=== PATIENT | female | born 1945 | race Hispanic/Latino ===

== ENCOUNTER 2018-05-19 10:07 | Inpatient (IN) | payer BC ==
[2018-05-19] MEDS ORDERED: Sodium Chloride 0.9% 1,000 ML IV SCH (10:30)
--- NOTE | 2018-05-19 10:36 | C.PDOC ---
History Of Present Illness 73 year old female, with PMHx of tremors, and psychosis, presents to ED for evaluation of tongue numbness since yesterday at 6:00 in the morning upon waking. Notes that she went to sleep at 7:00 the night before, 39 hours ago, which is the last time well. Denies vision change, motor weakness, hemiparesthesia, nausea, vomiting, or trauma. She notes that tongue feels heavy , which makes it difficult for her to speak normally. Notes her symptoms did not resolve which prompted her to visit PMD, Dr. Cuadra, today who sent her to ED for further evaluation. PMD: Dr. Yuli Cuadra Time Seen by Provider: 05/19/18 10:10 Chief Complaint (Nursing): Weakness/Neurological Deficit History Per: Patient History/Exam Limitations: no limitations Past Medical History Reviewed: Historical Data, Nursing Documentation, Vital Signs Vital Signs: Last Vital Signs Temp 98 F 05/19/18 10:12 Pulse 81 05/19/18 10:15 Resp 17 05/19/18 10:15 BP 152/59 H 05/19/18 10:15 Pulse Ox 96 05/19/18 10:57 - Medical History PMH: COPD, HTN - [facility] COLONOSCOPY (02/16/06) ESOPHAGOGASTRODUODENOSCOPY [EGD] W/CLOSED BIOPSY (02/16/06) Family History: States: Unknown Family Hx - Social History Hx Alcohol Use: No Hx Substance Use: No - Immunization History Hx Tetanus Toxoid Vaccination: No Hx Influenza Vaccination: No Hx Pneumococcal Vaccination: No Review Of Systems Except As Marked, All Systems Reviewed And Found Negative. Constitutional: Negative for: Fever, Chills ENT: Positive for: Other (tongue numbness) Cardiovascular: Negative for: Chest Pain Respiratory: Negative for: Shortness of Breath Physical Exam - Physical Exam Additional Physical Exam Comments: Constitutional: No acute distress. Head: Normocephalic. Atraumatic. Eyes: PERRL. ENT: Moist mucous membranes. Neck: Supple. Cardiovascular: Regular rate. Radial pulse 2+ bilaterally. Chest: No tenderness. Respiratory: Clear to auscultation bilaterally. GI: Soft. Nontender. Nondistended. Back: No CVA tenderness. Musculoskeletal: No tenderness or swelling of extremities. Skin: No rash. Neurologic: Alert. Left side facial droop sparing the forehead (pt and family didn't notice until time of evaluation). Sensation to light touch intact bilaterally. Motor 5/5 x 4. Finger to nose normal. ED Course And Treatment - Laboratory Results Result Diagrams: 05/19/18 10:27 05/19/18 10:27 O2 Sat by Pulse Oximetry: 96 rTPA Inclusion/Exclusion - Refusal of Treatment Patient Refused Treatment: No - Inclusion Criteria for Altepase Patient is 18 years or Older: Yes The Clinical Diagnosis of Ischemic Stroke That is Causing a Potentially Disabling Neurological Deficit: Yes Time of Onset is Well Established to be Less Than 270 Minute Before Treatment Would Begin: No Risk/Benefit Discussed With Patient/Family Member Present: Yes Medical Decision Making Medical Decision Making: EKG: Normal sinus rhythm at [address] elevation. Head CT IMPRESSION: No acute intracranial hemorrhage. Mild chronic periventricular white matter ischemic changes with more age-indeterminate infarct changes both basal ganglia with multiple tiny chronic appearing bilateral basal nuclei includes. Note that possibility of a small hyperacute infarct cannot be excluded on exam. Moderate central volume loss. Dr. Najera Neuro consulted, recommends MRI Brain which she will follow up on. Dr. Cheney accepts patient to hospitalist service. Aspirin administered. Disposition Discussed With : Mg Najera Doctor Will See Patient In The: Hospital - Disposition Disposition: HOSPITALIZED Disposition Time: 11:17 Condition: FAIR Forms: [facility] ([place]) - Clinical Impression Clinical Impression: Facial droop due to stroke - Scribe Statement The provider has reviewed the documentation as recorded by the Scribe KP All medical record entries made by the Scribe were at my direction and personally dictated by me. I have reviewed the chart and agree that the record accurately reflects my personal performance of the history, physical exam, medical decision making, and the department course for this patient. I have also personally directed, reviewed, and agree with the discharge instructions and disposition. NIHSS Stroke Scale - Date/Time Evaluation Performed Date Performed: 05/19/18 Time Performed: 10:42 - How Severe is the Stoke Level of Consciousness: 0=Alert LOC to Questions: 0=Both comments correct LOC to commands: 0=Obeys both correctly Best Gaze: 0=Normal Visual: 0=No visual loss Facial: 2=Partial (lower face paralysis) Motor Arm - Left: 0=No drift Motor Arm - Right: 0=No drift Motor Leg - Left: 0=No drift Motor Leg - Right: 0=No drift Limb Ataxia: 0=Absent Sensory: 0=Normal Best Language: 0=No aphasia Dysarthia: 1=Mild to moderate slurring Extinction & Inattention (Neglect): 0=Normal, no object Score: 3 Severity Of Stroke: 1-4= Minor Stroke
[2018-05-19 10:41] LABS: BASO # 0.1 K/uL (0.0-0.2); EOS # 0.1 K/uL (0.0-0.7); EOS % 1.7 % (0.0-4.0); HEMOGLOBIN 12.5 g/dL (11.0-16.0); LYMPH # 2.3 K/uL (1.0-4.3); MEAN CELL VOLUME 95.5 fL (81.0-99.0); MEAN CORPUSCULAR HEMOGLOBIN 31.8 pg (27.0-31.0); MEAN CORPUSCULAR HGB CONC 33.4 g/dL (33.0-37.0); MONO # 0.7 K/uL (0.0-0.8); MONO % 9.4 % (0.0-10.0); NEUT # 4.4 K/uL (1.8-7.0); NEUT % 57.9 % (50.0-75.0); RBC 3.92 Mil/uL (3.80-5.20); RED CELL DISTRIBUTION WIDTH 14.6 % (11.5-14.5); WHITE BLOOD COUNT 7.6 K/uL (4.8-10.8)
--- NOTE | 2018-05-19 10:43 | CT ---
Date of service: 05/19/2018 PROCEDURE: CT HEAD WITHOUT CONTRAST. HISTORY: Facial droop, tongue heaviness COMPARISON: None available. TECHNIQUE: Axial computed tomography images were obtained through the head/brain without intravenous contrast. Radiation dose: Total exam DLP = 862.22 mGy-cm. This CT exam was performed using one or more of the following dose reduction techniques: Automated exposure control, adjustment of the mA and/or kV according to patient size, and/or use of iterative reconstruction technique. . FINDINGS: HEMORRHAGE: No acute parenchymal, subarachnoid or extra-axial hemorrhage. BRAIN: Mild chronic periventricular white matter ischemic changes with ischemic changes seen extending into the left anterolateral basal ganglia. . There is an age indeterminate infarcts seen in the right posterior inferior basal ganglia likely chronic given its appearance however clinical correlation recommended. Additional multiple small chronic appearing bilateral basal nuclei lacunar type infarcts also seen. . . Note that the possibility of a small hyperacute infarct cannot be excluded. . Moderate central volume loss evidenced by mild disproportion enlargement of the ventricles compared sulci. Minor vascular calcifications both carotid siphons. VENTRICLES: No obstructive hydrocephalus. CALVARIUM: There are no acute calvarial fractures. PARANASAL SINUSES: Unremarkable as visualized. No significant inflammatory changes. MASTOID AIR CELLS: Unremarkable as visualized. No inflammatory changes. OTHER FINDINGS: None. IMPRESSION: No acute intracranial hemorrhage. Mild chronic periventricular white matter ischemic changes with more age-indeterminate infarct changes both basal ganglia with multiple tiny chronic appearing bilateral basal nuclei includes. Note that possibility of a small hyperacute infarct cannot be excluded on exam. Moderate central volume loss.
[2018-05-19 10:49] LABS: ALB/GLOB RATIO 1.5 (1.0-2.1); ALBUMIN 4.5 g/dL (3.5-5.0); CALCIUM 9.5 mg/dl (8.6-10.4); GFR AFRICAN-AMERICAN > 60; GFR NON-AFRICAN AMERICAN > 60; HDL CHOLESTEROL 47 mg/dL (30-70); INR 1.1
[2018-05-19 10:53] LABS: ALT/SGPT 16 U/L (9-52); AST/SGOT 25 U/L (14-36); BLOOD UREA NITROGEN 17 mg/dL (7-17)
[2018-05-19 11:01] LABS: LDL CHOLESTEROL 149 mg/dL (0-129)
--- NOTE | 2018-05-19 11:24 | RAD ---
Date of service: 05/19/2018 HISTORY: Code Stroke COMPARISON: No prior. FINDINGS: LUNGS: Minor linear atelectasis and scarring of both lung bases. PLEURA: No significant pleural effusion identified, no pneumothorax apparent. CARDIOVASCULAR: Normal. OSSEOUS STRUCTURES: No significant abnormalities. VISUALIZED UPPER ABDOMEN: Normal. OTHER FINDINGS: None. IMPRESSION: Minor linear atelectasis and or scarring both lung
--- NOTE | 2018-05-19 12:08 | CP.PCM.HP ---
<Salo Ball - Last Filed: 05/19/18 14:06> History of Present Illness - History of Present Illness History of Present Illness: cc: facial droop and tongue heaviness HPI: 73yo F with a PMH of COPD, HTN, Psychosis, tremors and a CVA (2008) presents to the ED with a one day history of facial droop and onset on tongue heaviness felt this morning. Pt also was acting a little strange and sounded "drunk" last night according to her son and grand son with whom she lives with. Pt was feeling dizzy and this morning son who noticed her facial droop and recommended she go see her PMD Dr Cuadra immediately. Dr cuadra sent the pt here to the ED with suspicion of stroke. Pt started on IVF upon arrival and given 325mg ASA PO when initial CT was read neg for bleed. Of note Pt has been off her anticonvulsant medication ROS:pos+ dizziness, Headache, tongue heaviness, couch, abd pain, worsening tremors, sick contact: grandson bronchitis neg - f/c vomiting, SOB, change in vision, change in speech PMD: Dr Cuadra Psych: Dr Hansen PSx hysterectomy, bladder sx fm hx: mom cataracts, dad young? SocHx: denies any drug tobacco or etoh use. Lives with son's family Present on Admission - Present on Admission Any Indicators Present on Admission: No Review of Systems - Constitutional Constitutional: As Per HPI - EENT Eyes: As Per HPI Ears: As Per HPI Nose/Mouth/Throat: As Per HPI - Breasts Breasts: As Per HPI - Cardiovascular Cardiovascular: As Per HPI. absent: Chest Pain, Chest Pain at Rest, Diaphoresis , Dyspnea, Dyspnea on Exertion, Pain Radiating to Arm/Neck/Jaw, Leg Edema, Palpitations - Respiratory Respiratory: As Per HPI, Cough - Gastrointestinal Gastrointestinal: Abdominal Pain, Nausea. absent: Loose Stools - Genitourinary Genitourinary: absent: Dysuria, Urinary Frequency - Musculoskeletal Musculoskeletal: Numbness (L face) - Neurological Neurological: Dizziness, Numbness (L face), Focal Weakness (R arm), Headaches, Lack of Coordination. absent: Loss of Vision, Memory Loss Additional comments: tongue heaviness - Hematologic/Lymphatic Additional comments: sick contact at home, grandson bronchitis Past Patient History - Past Medical History & Family History Past Medical History?: Yes - Past Social History Smoking Status: Never Smoked - CARDIAC Hx Hypertension: Yes - PULMONARY Hx Chronic Obstructive Pulmonary Disease (COPD): Yes - NEUROLOGICAL Hx Neurological Disorder: Yes HX Cerebrovascular Accident: Yes (9 years ago) - PSYCHIATRIC Hx Substance Use: No - SURGICAL HISTORY Hx Surgeries: Yes Hx Hysterectomy: Yes Meds Allergies/Adverse Reactions: Allergies Allergy/AdvReac Type Severity Reaction Status Date / Time lactose Allergy Verified 05/19/18 10:20 Penicillins Allergy Verified 05/19/18 10:20 Physical Exam - Constitutional Appears: Well, Non-toxic, No Acute Distress - Head Exam Head Exam: ATRAUMATIC, NORMOCEPHALIC - Eye Exam Eye Exam: EOMI, Normal appearance, PERRL Pupil Exam: NORMAL ACCOMODATION - ENT Exam ENT Exam: Mucous Membranes Moist Additional comments: tongue deviation to the left - Neck Exam Neck exam: Positive for: Normal Inspection - Respiratory Exam Respiratory Exam: Clear to Auscultation Bilateral, NORMAL BREATHING PATTERN - Cardiovascular Exam Cardiovascular Exam: RRR, +S1, +S2 - GI/Abdominal Exam GI & Abdominal Exam: Normal Bowel Sounds, Soft. absent: Tenderness - Back Exam Back exam: NORMAL INSPECTION - Neurological Exam Neurological exam: Alert, Oriented x3 Additional comments: POS: L facial numbness R arm weakness L sided tongue deviation Pos tap blink relfex Rhomberg's- unstable NEG: heel diaz slurred speech shor term memory deficits Resting tremors noted in all four extremities - Psychiatric Exam Psychiatric exam: Normal Affect, Normal Mood - Skin Skin Exam: Normal Color, Warm Results - Vital Signs Recent Vital Signs: Last Vital Signs Temp 98 F 05/19/18 10:12 Pulse 81 05/19/18 10:15 Resp 17 05/19/18 10:15 BP 152/59 H 05/19/18 10:15 Pulse Ox 96 05/19/18 11:18 - Labs Result Diagrams: 05/19/18 10:27 05/19/18 10:27 Labs: Laboratory Results - last 24 hr 05/19/18 05/19/18 05/19/18 10:12 10:27 10:27 WBC 7.6 RBC 3.92 Hgb 12.5 Hct 37.5 MCV 95.5 MCH 31.8 H MCHC 33.4 RDW 14.6 H Plt Count 274 MPV 9.0 Neut % (Auto) 57.9 Lymph % (Auto) 30.0 [place] % (Auto) 9.4 Eos % (Auto) 1.7 Baso % (Auto) 1.0 Neut # (Auto) 4.4 Lymph # (Auto) 2.3 [place] # (Auto) 0.7 Eos # (Auto) 0.1 Baso # (Auto) 0.1 PT 12.0 INR 1.1 APTT 36 H Sodium Potassium Chloride Carbon Dioxide Anion Gap BUN Creatinine Est GFR ( Amer) Est GFR (Non-Af Amer) POC Glucose (mg/dL) 115 H Random Glucose Hemoglobin A1c Calcium Total Bilirubin AST ALT Alkaline Phosphatase Troponin I Total Protein Albumin Globulin Albumin/Globulin Ratio Triglycerides Cholesterol LDL Cholesterol Direct HDL Cholesterol Blood Type Antibody Screen 05/19/18 05/19/18 05/19/18 10:27 10:27 10:27 WBC RBC Hgb Hct MCV MCH MCHC RDW Plt Count MPV Neut % (Auto) Lymph % (Auto) [place] % (Auto) Eos % (Auto) Baso % (Auto) Neut # (Auto) Lymph # (Auto) [place] # (Auto) Eos # (Auto) Baso # (Auto) PT INR APTT Sodium 142 Potassium 4.5 Chloride 106 Carbon Dioxide 25 Anion Gap 15 BUN 17 Creatinine 0.6 L Est GFR ( Amer) > 60 Est GFR (Non-Af Amer) > 60 POC Glucose (mg/dL) Random Glucose 99 Hemoglobin A1c 5.7 Calcium 9.5 Total Bilirubin 0.6 AST 25 ALT 16 Alkaline Phosphatase 100 Troponin I < 0.0120 Total Protein 7.4 Albumin 4.5 Globulin 2.9 Albumin/Globulin Ratio 1.5 Triglycerides 199 H Cholesterol 256 H LDL Cholesterol Direct 149 H HDL Cholesterol 47 Blood Type O POSITIVE Antibody Screen Negative Assessment & Plan - Assessment and Plan (Free Text) Assessment: 73yo F with a PMH of HTN, COPD and a CVA Plan: R Basal ganglia acute infarction: -MRI: R small postero lateral basialr infarct with findings of chronic white matter ischemic changes -CT: Chronic white matter changes in R basal ganglia -Dr Najera Neurology consulted: recs appreciated -Plavix 300mg given today, 75mg tmrw daily -ASA 81mg daily -Crestor 20mg -PT/OT -Lipid Panel Abd Pain -EKG f/u results -Trops f/u Hyperglycemia -ISS PPX: -ASA 81mg PO -Plavix 75mg PO daily <Joseph Cheney H - Last Filed: 05/21/18 11:14> Results - Vital Signs Recent Vital Signs: Last Vital Signs Temp 97.6 F 05/21/18 07:00 Pulse 105 H 05/21/18 08:57 Resp 18 05/21/18 07:00 BP 125/78 05/21/18 07:00 Pulse Ox 99 05/21/18 07:00 - Labs Result Diagrams: 05/21/18 08:21 05/21/18 09:05 Labs: Laboratory Results - last 24 hr 05/20/18 05/20/18 05/20/18 11:37 11:37 11:37 WBC 6.1 RBC 3.67 L Hgb 11.7 Hct 34.9 MCV 95.2 MCH 31.9 H MCHC 33.5 RDW 14.3 Plt Count 253 MPV 9.1 Neut % (Auto) 56.0 Lymph % (Auto) 32.4 [place] % (Auto) 8.2 Eos % (Auto) 2.4 Baso % (Auto) 1.0 Neut # (Auto) 3.4 Lymph # (Auto) 2.0 [place] # (Auto) 0.5 Eos # (Auto) 0.1 Baso # (Auto) 0.1 Sodium 144 Potassium 3.9 Chloride 108 H Carbon Dioxide 23 Anion Gap 17 BUN 11 Creatinine 0.6 L Est GFR ( Amer) > 60 Est GFR (Non-Af Amer) > 60 Random Glucose 92 Calcium 9.3 Phosphorus 2.3 L Magnesium 2.4 H Total Bilirubin 0.5 AST 17 ALT 21 Alkaline Phosphatase 97 Total Protein 7.0 Albumin 4.3 Globulin 2.8 Albumin/Globulin Ratio 1.5 25-OH Vitamin D Total < 12.8 L Free T4 TSH 3rd Generation RPR 05/20/18 05/20/18 05/20/18 11:37 11:37 11:37 WBC RBC Hgb Hct MCV MCH MCHC RDW Plt Count MPV Neut % (Auto) Lymph % (Auto) [place] % (Auto) Eos % (Auto) Baso % (Auto) Neut # (Auto) Lymph # (Auto) [place] # (Auto) Eos # (Auto) Baso # (Auto) Sodium Potassium Chloride Carbon Dioxide Anion Gap BUN Creatinine Est GFR ( Amer) Est GFR (Non-Af Amer) Random Glucose Calcium Phosphorus Magnesium Total Bilirubin AST ALT Alkaline Phosphatase Total Protein Albumin Globulin Albumin/Globulin Ratio 25-OH Vitamin D Total Free T4 0.88 TSH 3rd Generation 0.94 RPR Nonreactive 05/21/18 05/21/18 08:21 09:05 WBC 5.8 RBC 3.63 L Hgb 11.6 Hct 34.2 MCV 94.1 MCH 32.0 H MCHC 34.0 RDW 14.2 Plt Count 241 MPV 8.8 Neut % (Auto) 52.6 Lymph % (Auto) 35.3 [place] % (Auto) 8.3 Eos % (Auto) 2.7 Baso % (Auto) 1.1 Neut # (Auto) 3.0 Lymph # (Auto) 2.0 [place] # (Auto) 0.5 Eos # (Auto) 0.2 Baso # (Auto) 0.1 Sodium 142 Potassium 4.2 Chloride 108 H Carbon Dioxide 25 Anion Gap 13 BUN 7 Creatinine 0.6 L Est GFR ( Amer) > 60 Est GFR (Non-Af Amer) > 60 Random Glucose 99 Calcium 8.9 Phosphorus 3.1 Magnesium 2.3 Total Bilirubin 0.4 AST 19 ALT 23 Alkaline Phosphatase 95 Total Protein 6.4 Albumin 3.7 Globulin 2.7 Albumin/Globulin Ratio 1.4 25-OH Vitamin D Total Free T4 TSH 3rd Generation RPR Attending/Attestation - Attestation I have personally seen and examined this patient.: Yes I have fully participated in the care of the patient.: Yes I have reviewed all pertinent clinical information: Yes Notes (Text): 05/21/18 11:10 Medical attending: Patient was seen and examined by me on the day of admission with the ophthalmic medical technician. This is a later signing but we did see and evaluate the patient on admission. The patient was not in any acute distress however it was noted the facial drooping, the decrease sensation as well as slurred speech. The patient had a head CT which was negative, the MRI was done and the MRI was able to show that she did in fact have a small infacrtion. She will need to have an echo done as well as evaluation of the carotids, blood work. She will be started on Plavix 300 and then 75 afterwards, ASA, and also PT /OT. Because of the duration of when she was last seen normal as well as when she came in she was already approaching 40 hrs so is not a TPA candidate. Joseph Cheney
--- NOTE | 2018-05-19 12:51 | MRI ---
Date of service: 05/19/2018 PROCEDURE: MRI BRAIN WITHOUT CONTRAST HISTORY: Facial droop COMPARISON: None available. TECHNIQUE: Multiplanar, multisequence MR images of the brain were obtained without intravenous contrast enhancement. FINDINGS: HEMORRHAGE: No acute parenchymal, subarachnoid nor extra-axial hemorrhage. No evidence of hemosiderin deposition is identified on gradient echo weighted sequence. DWI: There is a tiny acute infarct seen in the right posterolateral basal ganglia. No other acute infarcts are identified. BRAIN PARENCHYMA: Mild diffuse/confluent chronic periventricular and white matter ischemic changes with scattered more discrete deep and subcortical white matter as well as bilateral basal nuclei lacunar type infarcts. . Moderate central volume loss. VENTRICLES: No obstructive hydrocephalus. CRANIUM: Unremarkable. ORBITS: Orbits and contents unremarkable. PARANASAL SINUSES/MASTOIDS: Clear VASCULAR SYSTEM: The visualized major vascular flow voids at skull base patent. OTHER FINDINGS: None. There is a small acute right posterolateral basal ganglia infarct. Chronic white matter ischemic change IMPRESSION: There is a small acute right posterolateral basal ganglia infarct. There are also of chronic appearing bilateral basal nuclei and chronic white matter ischemic changes as well. Findings discussed with Dr. Gonzales at approximately 12:49 p.m. with written down and read back verification. No acute intracranial hemorrhage. Moderate central volume loss.
[2018-05-19] MEDS: Sodium Chloride 0.9% 1,000 ML IV SCH (14:55)
--- NOTE | 2018-05-19 15:26 | CP.PCM.CON ---
History of Present Illness - History of Present Illness History of Present Illness: 73yo F with a PMH of COPD, HTN, Psychosis, tremors and a CVA (2008) presents to the ED with a one day history of facial droop and onset on tongue heaviness felt this morning. Pt also was acting a little strange and sounded "drunk" last night according to her son and grand son with whom she lives with. Pt was feeling dizzy and this morning son who noticed her facial droop and recommended she go see her PMD Dr Cuadra immediately. Dr cuadra sent the pt here to the ED with suspicion of stroke. Pt started on IVF upon arrival and given 325mg ASA PO when initial CT was read neg for bleed. Of note Pt has been off her anticonvulsant medication ROS:pos+ dizziness, Headache, tongue heaviness, couch, abd pain, worsening tremors, sick contact: grandson bronchitis neg - f/c vomiting, SOB, change in vision, change in speech PMD: Dr Cuadra Psych: Dr Hansen PSx hysterectomy, bladder sx fm hx: mom cataracts, dad young? SocHx: denies any drug tobacco or etoh use. Lives with son's family Past Patient History - Past Medical History & Family History Past Medical History?: Yes - Past Social History Smoking Status: Never Smoked - CARDIAC Hx Hypertension: Yes - PULMONARY Hx Chronic Obstructive Pulmonary Disease (COPD): Yes - NEUROLOGICAL Hx Neurological Disorder: Yes HX Cerebrovascular Accident: Yes (9 years ago) - MUSCULOSKELETAL/RHEUMATOLOGICAL Hx Falls: No - PSYCHIATRIC Hx Substance Use: No - SURGICAL HISTORY Hx Surgeries: Yes Hx Hysterectomy: Yes Meds Allergies/Adverse Reactions: Allergies Allergy/AdvReac Type Severity Reaction Status Date / Time lactose Allergy Verified 05/19/18 10:20 Penicillins Allergy Verified 05/19/18 10:20 - Medications Medications: Current Medications Clopidogrel Bisulfate (Plavix) 75 mg PO DAILY ALF Sodium Chloride (Sodium Chloride 0.9%) 1,000 mls @ 100 mls/hr IV .Q10H ALF Last Admin: 05/19/18 10:45 Dose: 100 mls/hr Sodium Chloride (Sodium Chloride 0.9%) 1,000 mls @ 100 mls/hr IV .Q10H ALF Last Admin: 05/19/18 14:55 Dose: Not Given Insulin Aspart (Novolog Mix 70/30 (70/30 Units/Ml)) 0 units SC ACHS ALF PRN Reason: Protocol Rosuvastatin Calcium (Crestor) 20 mg PO HS ALF Results - Vital Signs Recent Vital Signs: Last Vital Signs Temp 97.7 F 05/19/18 13:47 Pulse 78 05/19/18 13:47 Resp 18 05/19/18 13:47 BP 138/83 05/19/18 13:47 Pulse Ox 97 05/19/18 13:47 - Labs Result Diagrams: 05/22/18 07:15 05/22/18 07:15 Labs: Laboratory Results - last 24 hr 05/19/18 05/19/18 05/19/18 10:12 10:27 10:27 WBC 7.6 RBC 3.92 Hgb 12.5 Hct 37.5 MCV 95.5 MCH 31.8 H MCHC 33.4 RDW 14.6 H Plt Count 274 MPV 9.0 Neut % (Auto) 57.9 Lymph % (Auto) 30.0 [place] % (Auto) 9.4 Eos % (Auto) 1.7 Baso % (Auto) 1.0 Neut # (Auto) 4.4 Lymph # (Auto) 2.3 [place] # (Auto) 0.7 Eos # (Auto) 0.1 Baso # (Auto) 0.1 PT 12.0 INR 1.1 APTT 36 H Sodium Potassium Chloride Carbon Dioxide Anion Gap BUN Creatinine Est GFR ( Amer) Est GFR (Non-Af Amer) POC Glucose (mg/dL) 115 H Random Glucose Hemoglobin A1c Calcium Total Bilirubin AST ALT Alkaline Phosphatase Troponin I Total Protein Albumin Globulin Albumin/Globulin Ratio Triglycerides Cholesterol LDL Cholesterol Direct HDL Cholesterol Blood Type Antibody Screen 05/19/18 05/19/18 05/19/18 10:27 10:27 10:27 WBC RBC Hgb Hct MCV MCH MCHC RDW Plt Count MPV Neut % (Auto) Lymph % (Auto) [place] % (Auto) Eos % (Auto) Baso % (Auto) Neut # (Auto) Lymph # (Auto) [place] # (Auto) Eos # (Auto) Baso # (Auto) PT INR APTT Sodium 142 Potassium 4.5 Chloride 106 Carbon Dioxide 25 Anion Gap 15 BUN 17 Creatinine 0.6 L Est GFR ( Amer) > 60 Est GFR (Non-Af Amer) > 60 POC Glucose (mg/dL) Random Glucose 99 Hemoglobin A1c 5.7 Calcium 9.5 Total Bilirubin 0.6 AST 25 ALT 16 Alkaline Phosphatase 100 Troponin I < 0.0120 Total Protein 7.4 Albumin 4.5 Globulin 2.9 Albumin/Globulin Ratio 1.5 Triglycerides 199 H Cholesterol 256 H LDL Cholesterol Direct 149 H HDL Cholesterol 47 Blood Type O POSITIVE Antibody Screen Negative Assessment & Plan - Assessment and Plan (Free Text) Assessment: MRI Brain: Plan: MRI/Brain: shows right posterolateral basal ganglia acute stroke, with no hemorrhage. A/Plan: 73 yr old woman with new onset small rt. mca division 1 most likely embolic stroke, who is now stable. plan: 1. ECho 2. CTA head and neck. 3. Keep BP elevated at 180-190/90 with normal saline 100 ccs/hr 4. aspirin and plavix. 5. statin started. 6. PT/ST/OT 7. Neurochecks Thank you Dr. posadas
[2018-05-19] MEDS: (Novolog Mix 70/30) Insulin Aspart/Insulin Aspar 100 units/ml SC SCH ×2 (17:05→22:03)
[2018-05-19] MEDS ORDERED: Iodixanol 320 MG/ML 100 ML BOTTLE IV ONE (17:45)
[2018-05-20] MEDS: Sodium Chloride 0.9% 1,000 ML IV SCH ×2 (03:07→20:00)
[2018-05-20] MEDS: (Novolog Mix 70/30) Insulin Aspart/Insulin Aspar 100 units/ml SC SCH ×4 (08:14→22:38)
--- NOTE | 2018-05-20 08:20 | CP.PCM.PN ---
<Destini Davila DO - Last Filed: 05/20/18 15:37> Subjective - Date & Time of Evaluation Date of Evaluation: 05/20/18 Time of Evaluation: 08:20 - Subjective Subjective: Medicine progress note for Dr. Friedman's service Patient seen and examined. Patient reports persistent tongue "heaviness" that she states interferes with her ability to articulate her speech. She states her facial droop has improved. She reports inability to have IV contrast due to dizziness and tremors that resulted from last attempt at IV contrast administration. Objective - Vital Signs/Intake and Output Vital Signs (last 24 hours): Temp Pulse Resp BP Pulse Ox 98.1 F 77 20 131/80 99 05/20/18 07:10 05/20/18 07:10 05/20/18 07:10 05/20/18 07:10 05/20/18 07:10 Intake and Output: 05/20/18 05/20/18 06:59 18:59 Intake Total 800 900 Balance 800 900 - Medications Medications: Current Medications Clopidogrel Bisulfate (Plavix) 75 mg PO DAILY [facility]F Sodium Chloride (Sodium Chloride 0.9%) 1,000 mls @ 100 mls/hr IV .Q10H [facility] Last Admin: 05/20/18 03:07 Dose: 100 mls/hr Insulin Aspart (Novolog Mix 70/30 (70/30 Units/Ml)) 0 units SC ACHS [facility] PRN Reason: Protocol Last Admin: 05/20/18 08:14 Dose: Not Given Rosuvastatin Calcium (Crestor) 20 mg PO HS ALF Last Admin: 05/19/18 21:20 Dose: 20 mg - Labs Labs: 05/19/18 10:27 05/19/18 10:27 PT 12.0 SECONDS (9.7-12.2) 05/19/18 10:27 INR 1.1 05/19/18 10:27 APTT 36 SECONDS (21-34) H 05/19/18 10:27 Assessment and Plan - Assessment and Plan (Free Text) Assessment: R Basal ganglia acute infarction: -MRI: R small postero lateral basialr infarct with findings of chronic white matter ischemic changes -CT: Chronic white matter changes in R basal ganglia -Dr Najera Neurology consulted: recs appreciated -Plavix 300mg given today, 75mg daily after -ASA 81mg daily -Crestor 20mg -PT/OT/ ST -Lipid Panel: Triglycerides 199, cholesterol 256, LDL 149, HDL 47 -TSH 0.94, Free T4 0.88 - vit D <12.8 Impaired Glucose tolerance -Hemoglobin A1c 5.7 PPX: PT/ OT/ ST <Delfin Friedman - Last Filed: 05/20/18 16:27> Objective - Vital Signs/Intake and Output Vital Signs (last 24 hours): Temp Pulse Resp BP Pulse Ox 98.1 F 77 20 131/80 99 05/20/18 07:10 05/20/18 07:10 05/20/18 07:10 05/20/18 07:10 05/20/18 07:10 Intake and Output: 05/20/18 05/20/18 06:59 18:59 Intake Total 800 900 Balance 800 900 - Medications Medications: Current Medications Acetaminophen (Tylenol 325mg Tab) 650 mg PO Q6 PRN PRN Reason: Pain, Mild (1-3) Last Admin: 05/20/18 10:05 Dose: 650 mg Albuterol/Ipratropium (Duoneb 3 Mg/0.5 Mg (3 Ml) Ud) 3 ml INH RQ6 PRN PRN Reason: Shortness of Breath Aspirin (Aspirin Chewable) 81 mg PO DAILY [facility] Last Admin: 05/20/18 13:09 Dose: 81 mg Clopidogrel Bisulfate (Plavix) 75 mg PO DAILY [facility] Last Admin: 05/20/18 09:18 Dose: 75 mg Heparin Sodium (Porcine) (Heparin) 5,000 units SC Q12 [facility] Last Admin: 05/20/18 13:09 Dose: 5,000 units Sodium Chloride (Sodium Chloride 0.9%) 1,000 mls @ 100 mls/hr IV .Q10H [facility] Last Admin: 05/20/18 03:07 Dose: 100 mls/hr Insulin Aspart (Novolog Mix 70/30 (70/30 Units/Ml)) 0 units SC ACHS [facility] PRN Reason: Protocol Last Admin: 05/20/18 14:44 Dose: Not Given Rosuvastatin Calcium (Crestor) 20 mg PO HS [facility] Last Admin: 05/19/18 21:20 Dose: 20 mg - Labs Labs: 05/20/18 11:37 05/20/18 11:37 PT 12.0 SECONDS (9.7-12.2) 05/19/18 10:27 INR 1.1 05/19/18 10:27 APTT 36 SECONDS (21-34) H 05/19/18 10:27 Attending/Attestation - Attestation I have personally seen and examined this patient.: Yes I have fully participated in the care of the patient.: Yes I have reviewed all pertinent clinical information, including history, physical exam and plan: Yes Notes (Text): 05/20/18 16:17 Patient was seen and examined at 12:10 PM 05/20/18 Bed 659 A Also on ROS: Moved her bowels 2 days ago on and states that she has a history of Constipation Heaviness of tongue sensation has almost completely resolved now only involving the left lateral aspect of the tongue She has been eating solids (croissant) from [employer] without and issues and can't stand the puree diet Exam: General: AAOX3, NAD HEENT: NCA, EOMI, PERRLA, NO cervical/supraclavicular/submandibular lymphadenopathy, NO pharyngeal erythema/exudate, Nasal Turbinates are nonerythematous/nonedematous, Oral Mucosa is moist, She is unable to move the left side of her mouth when asked to smile Cardio: NS1 and NS2, NO M/R/G Resp: CTA B/L, NO R/R/W GI: BSx4, Soft, NT, NO HSM, NO guarding/rebound tenderness Ext: Pulses are strong and equal, Capillary Refill is 2 seconds, NO edema Neuro: CN II through XII are grossly intact, 5/5 strength with flexion and extension against resistance and 2/4 DTR in bilateral upper and lower extremities Assessments: 1). 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 Rhianna Fernandez F/U PT F/U Speech Swallow Evaluation before advancing diet 2). HTN HOLD any antihypertensives for now so as to keep the SBP in the 180-190s as per Neurology NS at 100 ml/hr 3). Prophylaxis Heparin 5,000 Units SC Q8H Duoneb Q6H PRN SOB Tylenol 650 mg PO Q6H PRN Mild Pain Disposition: will need Swallow Evaluation, PT and Neurology clearance Delfin Friedman D.O.
[2018-05-20] MEDS ORDERED: Albuterol-Ipratrop 3 mg / 0.5 (3 ml) UD INH PRN (09:52)
[2018-05-20 12:04] LABS: BASO # 0.1 K/uL (0.0-0.2); EOS # 0.1 K/uL (0.0-0.7); EOS % 2.4 % (0.0-4.0); HEMOGLOBIN 11.7 g/dL (11.0-16.0); LYMPH % 32.4 % (20.0-40.0); MEAN CELL VOLUME 95.2 fL (81.0-99.0); MEAN CORPUSCULAR HEMOGLOBIN 31.9 pg (27.0-31.0); MEAN CORPUSCULAR HGB CONC 33.5 g/dL (33.0-37.0); MEAN PLATELET VOLUME 9.1 fL (7.2-11.7); MONO # 0.5 K/uL (0.0-0.8); MONO % 8.2 % (0.0-10.0); NEUT # 3.4 K/uL (1.8-7.0); NRBC % 0.1 % (0.0-2.0); RBC 3.67 Mil/uL (3.80-5.20); RED CELL DISTRIBUTION WIDTH 14.3 % (11.5-14.5); WHITE BLOOD COUNT 6.1 K/uL (4.8-10.8)
[2018-05-20 12:26] LABS: ALB/GLOB RATIO 1.5 (1.0-2.1); ALBUMIN 4.3 g/dL (3.5-5.0); ALT/SGPT 21 U/L (9-52); AST/SGOT 17 U/L (14-36); BLOOD UREA NITROGEN 11 mg/dL (7-17); CALCIUM 9.3 mg/dl (8.6-10.4); GFR AFRICAN-AMERICAN > 60; GFR NON-AFRICAN AMERICAN > 60
[2018-05-21] MEDS: (Novolog Mix 70/30) Insulin Aspart/Insulin Aspar 100 units/ml SC SCH ×3 (07:05→22:43)
[2018-05-21] MEDS ORDERED: Ergocalciferol 50,000 Intl Units Cap PO SCH (08:15)
[2018-05-21 08:48] LABS: BASO # 0.1 K/uL (0.0-0.2); BASO % 1.1 % (0.0-2.0); EOS # 0.2 K/uL (0.0-0.7); EOS % 2.7 % (0.0-4.0); HEMOGLOBIN 11.6 g/dL (11.0-16.0); LYMPH % 35.3 % (20.0-40.0); MEAN CELL VOLUME 94.1 fL (81.0-99.0); MEAN PLATELET VOLUME 8.8 fL (7.2-11.7); MONO # 0.5 K/uL (0.0-0.8); MONO % 8.3 % (0.0-10.0); NEUT % 52.6 % (50.0-75.0); NRBC % 0.2 % (0.0-2.0); RBC 3.63 Mil/uL (3.80-5.20); RED CELL DISTRIBUTION WIDTH 14.2 % (11.5-14.5); WHITE BLOOD COUNT 5.8 K/uL (4.8-10.8)
--- NOTE | 2018-05-21 09:00 | CP.PCM.PN ---
Subjective - Date & Time of Evaluation Date of Evaluation: 05/21/18 Time of Evaluation: 08:59 - Subjective Subjective: Ms. Rodas was seen and examined at the bedside. She is alert, oriented in all spheres. She denies any headache, dizziness, lightheadedness, nausea, or vomiting. She is able to follow simple commands with left upper extremity. She is able to repositioned herself in bed with minimal assistance. There was no untoward events overnight. Objective - Vital Signs/Intake and Output Vital Signs (last 24 hours): Temp Pulse Resp BP Pulse Ox 97.6 F 84 18 125/78 99 05/21/18 07:00 05/21/18 07:00 05/21/18 07:00 05/21/18 07:00 05/21/18 07:00 Intake and Output: 05/21/18 05/21/18 06:59 18:59 Intake Total 1600 Balance 1600 - Medications Medications: Current Medications Acetaminophen (Tylenol 325mg Tab) 650 mg PO Q6 PRN PRN Reason: Pain, Mild (1-3) Last Admin: 05/20/18 10:05 Dose: 650 mg Albuterol/Ipratropium (Duoneb 3 Mg/0.5 Mg (3 Ml) Ud) 3 ml INH RQ6 PRN PRN Reason: Shortness of Breath Aspirin (Aspirin Chewable) 81 mg PO DAILY [facility] Last Admin: 05/20/18 13:09 Dose: 81 mg Clopidogrel Bisulfate (Plavix) 75 mg PO DAILY [facility] Last Admin: 05/20/18 09:18 Dose: 75 mg Ergocalciferol (Drisdol 50,000 Intl Units Cap) 1 cap PO Q7D [facility] Heparin Sodium (Porcine) (Heparin) 5,000 units SC Q12 [facility] Last Admin: 05/20/18 21:20 Dose: 5,000 units Sodium Chloride (Sodium Chloride 0.9%) 1,000 mls @ 100 mls/hr IV .Q10H [facility] Last Admin: 05/20/18 20:00 Dose: Not Given Insulin Aspart (Novolog Mix 70/30 (70/30 Units/Ml)) 0 units SC ACHS ALF PRN Reason: Protocol Last Admin: 05/21/18 07:05 Dose: Not Given Rosuvastatin Calcium (Crestor) 20 mg PO HS [facility] Last Admin: 05/20/18 21:20 Dose: 20 mg - Labs Labs: 05/21/18 08:21 05/20/18 11:37 PT 12.0 SECONDS (9.7-12.2) 05/19/18 10:27 INR 1.1 05/19/18 10:27 APTT 36 SECONDS (21-34) H 05/19/18 10:27 - Constitutional Appears: No Acute Distress - Head Exam Head Exam: NORMAL INSPECTION - Eye Exam Pupil Exam: Miosis, PERRL Additional comments: 2 mm - Neurological Exam Neurological Exam: Alert, Awake, Oriented x3 Neuro motor strength exam: Left Upper Extremity: 4, Right Upper Extremity: 5, Left Lower Extremity: 4, Right Lower Extremity: 5 Additional comments: alert, oriented, with left side weakness Assessment and Plan (1) CVA (cerebral vascular accident) Assessment & Plan: Continue all current medical, physical, occupational, and speech therapies. Pending result of carotid ultrasound. Recommend blood pressure control, treat any electrolyte abnormalities, keep the head of the bed elevated at least 30 degrees. Status: Acute
[2018-05-21 09:28] LABS: ALB/GLOB RATIO 1.4 (1.0-2.1); ALBUMIN 3.7 g/dL (3.5-5.0); ALT/SGPT 23 U/L (9-52); AST/SGOT 19 U/L (14-36); BLOOD UREA NITROGEN 7 mg/dL (7-17); CALCIUM 8.9 mg/dl (8.6-10.4); GFR AFRICAN-AMERICAN > 60; GFR NON-AFRICAN AMERICAN > 60
--- NOTE | 2018-05-21 10:42 | CP.PCM.PN ---
Subjective - Date & Time of Evaluation Date of Evaluation: 05/21/18 Time of Evaluation: 10:00 - Subjective Subjective: Patient was seen and examined by me. She was not in any acute distress when I came and saw her. The patient reported no acute events overnight She says to us that she still has some slurred speech to her (that being said it sounded better to me compared to when I last saw her Tuesday) She still has Left side facial droop She reports she did walk to the bathroom slowly on her own and also yesterday was seen by PT which also walked her as well. They recomend that she go to TCU/ DAILY. Patient does not want this, she says to us she'd rather go home and possibly have PT at home. This being said she still needs echo to be done. The patient is NSR in the 80s Anyway she will be here until case workers can see her again tommorow. Maybe home tmmorow with PT Objective - Vital Signs/Intake and Output Vital Signs (last 24 hours): Temp Pulse Resp BP Pulse Ox 97.6 F 105 H 18 125/78 99 05/21/18 07:00 05/21/18 08:57 05/21/18 07:00 05/21/18 07:00 05/21/18 07:00 Intake and Output: 05/21/18 05/21/18 06:59 18:59 Intake Total 1600 Balance 1600 - Medications Medications: Current Medications Acetaminophen (Tylenol 325mg Tab) 650 mg PO Q6 PRN PRN Reason: Pain, Mild (1-3) Last Admin: 05/20/18 10:05 Dose: 650 mg Albuterol/Ipratropium (Duoneb 3 Mg/0.5 Mg (3 Ml) Ud) 3 ml INH RQ6 PRN PRN Reason: Shortness of Breath Aspirin (Aspirin Chewable) 81 mg PO DAILY [facility] Last Admin: 05/21/18 09:25 Dose: 81 mg Clopidogrel Bisulfate (Plavix) 75 mg PO DAILY [facility] Last Admin: 05/21/18 09:25 Dose: 75 mg Ergocalciferol (Drisdol 50,000 Intl Units Cap) 1 cap PO Q7D [facility] Heparin Sodium (Porcine) (Heparin) 5,000 units SC Q12 [facility] Last Admin: 05/21/18 09:25 Dose: 5,000 units Magnesium Sulfate/Dextrose (Magnesium Sulfate 1 Gm/100 Ml D5w) 1 gm in 100 mls @ 100 mls/hr IVPB ONCE ONE Stop: 05/21/18 11:59 Last Admin: 05/21/18 10:33 Dose: 100 mls/hr Insulin Aspart (Novolog Mix 70/30 (70/30 Units/Ml)) 0 units SC ACHS ALF PRN Reason: Protocol Last Admin: 05/21/18 07:05 Dose: Not Given Rosuvastatin Calcium (Crestor) 20 mg PO HS [facility] Last Admin: 05/20/18 21:20 Dose: 20 mg - Labs Labs: 05/21/18 08:21 05/21/18 09:05 PT 12.0 SECONDS (9.7-12.2) 05/19/18 10:27 INR 1.1 05/19/18 10:27 APTT 36 SECONDS (21-34) H 05/19/18 10:27 - Constitutional Appears: Well, Non-toxic, No Acute Distress - Head Exam Head Exam: NORMAL INSPECTION, NORMOCEPHALIC - Eye Exam Eye Exam: EOMI, Normal appearance - Respiratory Exam Respiratory Exam: Clear to Ausculation Bilateral, NORMAL BREATHING PATTERN - Cardiovascular Exam Cardiovascular Exam: Murmur Additional comments: Pending echo results - GI/Abdominal Exam GI & Abdominal Exam: Soft, Normal Bowel Sounds. absent: Distended, Firm, Guarding, Rigid, Tenderness - Neurological Exam Neurological Exam: Alert, Awake, Oriented x3 Neuro motor strength exam: Left Upper Extremity: 4, Right Upper Extremity: 4, Left Lower Extremity: 4, Right Lower Extremity: 4 Additional comments: + Facial droop + speech slurred - however does sound better than previous - Psychiatric Exam Psychiatric exam: Normal Affect, Normal Mood - Skin Skin Exam: Normal Color, Warm Assessment and Plan - Assessment and Plan (Free Text) Assessment: R Basal ganglia acute infarction: 05/21: Patient is able to ambulate in room and to the bathroom, still has slurred speech as well but fully conversant - it sounds better than before. She still has facial droop. We are still pending on the 2 dec, also she could not have IV contrast given due to allergies. She does not want to go to [facility], she preffers to go to home with home PT MRI: R small postero lateral basialr infarct with findings of chronic white matter ischemic changes CT: Chronic white matter changes in R basal ganglia Dr Najera Neurology consulted: recs appreciated Plavix 300mg given today, 75mg daily after ASA 81mg daily Crestor 20mg Lipid Panel: Triglycerides 199, cholesterol 256, LDL 149, HDL 47 TSH 0.94, Free T4 0.88 vit D <12.8 Impaired Glucose tolerance -Hemoglobin A1c 5.7
[2018-05-21] MEDS ORDERED: Magnesium Sulfate 1 gm in D5W 1 GM/100 ML BAG IVPB ONE (11:00)
--- NOTE | 2018-05-22 06:32 | CP.PCM.PN ---
Subjective - Date & Time of Evaluation Date of Evaluation: 05/22/18 Time of Evaluation: 06:32 - Subjective Subjective: Ms. Rodas was seen and examined at the bedside. She is alert, oriented in all spheres. She denies any headache, dizziness, lightheadedness, nausea, or vomiting. She is able to follow simple commands with left side weakness and left facial droop. She is happy that her diet was upgraded and denies any s/s of aspiration.She is able to repositioned herself in bed with minimal assistance. There was no untoward events overnight. Objective - Vital Signs/Intake and Output Vital Signs (last 24 hours): Temp Pulse Resp BP Pulse Ox 98.0 F 74 20 134/74 98 05/21/18 23:50 05/21/18 23:50 05/21/18 23:50 05/21/18 23:50 05/21/18 23:50 - Medications Medications: Current Medications Acetaminophen (Tylenol 325mg Tab) 650 mg PO Q6 PRN PRN Reason: Pain, Mild (1-3) Last Admin: 05/20/18 10:05 Dose: 650 mg Albuterol/Ipratropium (Duoneb 3 Mg/0.5 Mg (3 Ml) Ud) 3 ml INH RQ6 PRN PRN Reason: Shortness of Breath Aspirin (Aspirin Chewable) 81 mg PO DAILY [facility] Last Admin: 05/21/18 09:25 Dose: 81 mg Clopidogrel Bisulfate (Plavix) 75 mg PO DAILY [facility] Last Admin: 05/21/18 09:25 Dose: 75 mg Ergocalciferol (Drisdol 50,000 Intl Units Cap) 1 cap PO Q7D [facility] Heparin Sodium (Porcine) (Heparin) 5,000 units SC Q12 [facility] Last Admin: 05/21/18 21:27 Dose: 5,000 units Insulin Aspart (Novolog Mix 70/30 (70/30 Units/Ml)) 0 units SC ACHS [facility] PRN Reason: Protocol Last Admin: 05/21/18 22:43 Dose: Not Given Rosuvastatin Calcium (Crestor) 20 mg PO HS [facility] Last Admin: 05/21/18 21:28 Dose: 20 mg - Labs Labs: 05/21/18 08:21 05/21/18 09:05 PT 12.0 SECONDS (9.7-12.2) 05/19/18 10:27 INR 1.1 05/19/18 10:27 APTT 36 SECONDS (21-34) H 05/19/18 10:27 - Constitutional Appears: No Acute Distress - Head Exam Head Exam: NORMAL INSPECTION - Eye Exam Pupil Exam: Mydriatic, PERRL Additional comments: 3 mm - Neurological Exam Neurological Exam: Alert, Awake, Oriented x3 Neuro motor strength exam: Left Upper Extremity: 4, Right Upper Extremity: 5, Left Lower Extremity: 4, Right Lower Extremity: 5 Additional comments: neurological unchanged from previous examination. Assessment and Plan (1) CVA (cerebral vascular accident) Assessment & Plan: Continue all current medical, physical, occupational, and speech therapies. Pending result of carotid ultrasound. Recommend blood pressure control, treat any electrolyte abnormalities, keep the head of the bed elevated at least 30 degrees, and rehab for discharge planning. Status: Acute
[2018-05-22] MEDS: (Novolog Mix 70/30) Insulin Aspart/Insulin Aspar 100 units/ml SC SCH ×3 (07:23→21:08)
[2018-05-22 07:32] LABS: BASO # 0.1 K/uL (0.0-0.2); BASO % 1.1 % (0.0-2.0); EOS # 0.2 K/uL (0.0-0.7); EOS % 2.9 % (0.0-4.0); HEMOGLOBIN 11.5 g/dL (11.0-16.0); LYMPH # 1.7 K/uL (1.0-4.3); LYMPH % 29.8 % (20.0-40.0); MEAN CELL VOLUME 93.6 fL (81.0-99.0); MEAN CORPUSCULAR HEMOGLOBIN 31.7 pg (27.0-31.0); MEAN CORPUSCULAR HGB CONC 33.8 g/dL (33.0-37.0); MEAN PLATELET VOLUME 8.8 fL (7.2-11.7); MONO # 0.5 K/uL (0.0-0.8); MONO % 9.3 % (0.0-10.0); NEUT # 3.2 K/uL (1.8-7.0); NEUT % 56.9 % (50.0-75.0); RBC 3.62 Mil/uL (3.80-5.20); RED CELL DISTRIBUTION WIDTH 13.9 % (11.5-14.5); WHITE BLOOD COUNT 5.6 K/uL (4.8-10.8)
[2018-05-22 07:39] LABS: ALB/GLOB RATIO 1.5 (1.0-2.1); ALBUMIN 3.7 g/dL (3.5-5.0); ALT/SGPT 25 U/L (9-52); AST/SGOT 18 U/L (14-36); BLOOD UREA NITROGEN 11 mg/dL (7-17); CALCIUM 9.1 mg/dl (8.6-10.4); GFR AFRICAN-AMERICAN > 60; GFR NON-AFRICAN AMERICAN > 60
--- NOTE | 2018-05-22 08:01 | CARD ---
APPROVED REPORT Date of service: 05/19/2018 EKG Measurement Heart [id number] 142P-7 [id number] <Conclusion> Normal sinus rhythm Inferior infarct, age undetermined Abnormal ECG
--- NOTE | 2018-05-22 08:01 | CARD ---
APPROVED REPORT Date of service: 05/19/2018 EKG Measurement Heart [id number] [id number] [id number] <Conclusion> Normal sinus rhythm Normal ECG
--- NOTE | 2018-05-22 09:34 | VASCLAB ---
Date of service: 05/19/2018 PROCEDURE: HISTORY: stroke COMPARISON: None available. TECHNIQUE: Grayscale and duplex Doppler evaluation of the cervical carotid and vertebral arteries were performed. The common carotid, carotid bifurcations and cervical Internal Carotid Artery (ICA) and proximal External Carotid Artery (ECA) were evaluated. The vertebral arteries were evaluated for gross patency and flow direction. Report prepared by David Olvera, BS, RVT FINDINGS: RIGHT CAROTID ARTERIES: 1. Common Carotid Artery: No significant focal plaque formation of the right common carotid artery. Maximum Peak Systolic velocity: 91 cm/sec: End-diastolic velocity 15 cm/sec. 2. Carotid Bifurcation: plaque formation. Maximum Peak Systolic velocity: 96 cm/sec: End-diastolic velocity 12 cm/sec. 3. Internal Carotid Artery: Plaque description: 3.1. Proximal Segment: Peak systolic velocity 96 cm/sec: End-diastolic velocity 21 cm/sec - % stenosis 0-15% 3.2. Middle Segment: Peak systolic velocity 136 cm/sec: End-diastolic velocity 33 cm/sec - % stenosis 0-15% 3.3. Distal Segment: Peak systolic velocity 137 cm/sec: End-diastolic velocity 35 cm/sec - % stenosis 0-15% 4. External Carotid Artery: No significant focal plaque formation. Peak systolic velocity 156 cm/sec 5. ICA/CCA Ratio: 1.5 LEFT CAROTID ARTERIES: 1. Common Carotid Artery: No significant focal plaque formation of the left common carotid artery. Maximum Peak Systolic velocity: 102 cm/sec: End-diastolic velocity 15 cm/sec. 2. Carotid Bifurcation: plaque formation. Maximum Peak Systolic velocity: 98 cm/sec: End-diastolic velocity 15 cm/sec. 3. Internal Carotid Artery: Plaque description: 3.1. Proximal Segment: Peak systolic velocity 100 cm/sec: End-diastolic velocity 23 cm/sec - % stenosis 0-15% 3.2. Middle Segment: Peak systolic velocity 88 cm/sec: End-diastolic velocity 20 cm/sec - % stenosis 0-15% 3.3. Distal Segment: Peak systolic velocity 122 cm/sec: End-diastolic velocity 31 cm/sec - % stenosis 0-15% 4. External Carotid Artery: No significant focal plaque formation. Peak systolic velocity 117 cm/sec 5. ICA/CCA Ratio: 12 VERTEBRAL ARTERIES: 1. Right Vertebral Artery: The right vertebral artery flow direction is antegrade. 2. Left Vertebral Artery: The left vertebral artery flow direction is antegrade. OTHER FINDINGS: 1. Right Brachial Blood pressure: 164 mmHg. 2. Left Brachial Blood pressure: mmHg. IMPRESSION: RIGHT: Duplex scan does not suggest hemodynamically significant stenosis of the right extracranial carotid arteries. LEFT: Duplex scan does not suggest hemodynamically significant stenosis of the left extracranial carotid arteries. Tortuosity of lthe eft internal carotid artery noted.
--- NOTE | 2018-05-22 13:30 | CP.PCM.PN ---
<Salo Ball - Last Filed: 05/22/18 15:52> Subjective - Date & Time of Evaluation Date of Evaluation: 05/22/18 Time of Evaluation: 13:26 - Subjective Subjective: Pt seen and examined at bedside. Pt complain of light sided ear fullness. Pt feels dizzy and has an associated headache. Pt denies any n/v, f/c, sob, cp and loc. Objective - Vital Signs/Intake and Output Vital Signs (last 24 hours): Temp Pulse Resp BP Pulse Ox 98.2 F 73 18 116/65 95 05/22/18 08:25 05/22/18 08:25 05/22/18 08:25 05/22/18 08:25 05/22/18 08:25 - Medications Medications: Current Medications Acetaminophen (Tylenol 325mg Tab) 650 mg PO Q6 PRN PRN Reason: Pain, Mild (1-3) Last Admin: 05/22/18 09:31 Dose: 650 mg Albuterol/Ipratropium (Duoneb 3 Mg/0.5 Mg (3 Ml) Ud) 3 ml INH RQ6 PRN PRN Reason: Shortness of Breath Aspirin (Aspirin Chewable) [address] [facility] Last Admin: 05/22/18 09:28 Dose: 81 mg Clopidogrel Bisulfate (Plavix) [address] [facility] Last Admin: 05/22/18 09:28 Dose: 75 mg Ergocalciferol (Drisdol 50,000 Intl Units Cap) [address] [facility] Heparin Sodium (Porcine) (Heparin) 5,[address] [facility] Last Admin: 05/22/18 09:28 Dose: 5,000 units Insulin Aspart (Novolog Mix 70/30 (70/30 Units/Ml)) [address] [facility] PRN Reason: Protocol Last Admin: 05/22/18 07:23 Dose: Not Given Rosuvastatin Calcium (Crestor) [address] [facility] Last Admin: 05/21/18 21:28 Dose: 20 mg - Labs Labs: 05/22/18 07:15 05/22/18 07:15 PT 12.0 SECONDS (9.7-12.2) 05/19/18 10:27 INR 1.1 05/19/18 10:27 APTT 36 SECONDS (21-34) H 05/19/18 10:27 - Constitutional Appears: Well, Non-toxic, Toxic - Head Exam Head Exam: ATRAUMATIC, NORMAL INSPECTION - Eye Exam Eye Exam: EOMI, Normal appearance. absent: Nystagmus - ENT Exam ENT Exam: Mucous Membranes Moist - Neck Exam Neck Exam: Tenderness (L sternocleidomastoid tenderness, possible spasm). absent: Thyromegaly - Respiratory Exam Respiratory Exam: Clear to Ausculation Bilateral, NORMAL BREATHING PATTERN. absent: Respiratory Distress, Stridor - Cardiovascular Exam Cardiovascular Exam: RRR, +S1, +S2. absent: Murmur - GI/Abdominal Exam GI & Abdominal Exam: Soft, Normal Bowel Sounds. absent: Tenderness - Extremities Exam Extremities Exam: Full ROM, Normal Capillary Refill, Normal Inspection. absent : Pedal Edema - Back Exam Back Exam: NORMAL INSPECTION - Neurological Exam Neurological Exam: Alert, Awake, CN II-XII Intact, Oriented x3 Additional comments: neg head impulse for vertigo or nystagmus neg meño hallpike Positive facial droop left side Positive l sided tongue deviation - Psychiatric Exam Psychiatric exam: Normal Affect, Normal Mood - Skin Skin Exam: Normal Color, Warm Assessment and Plan - Assessment and Plan (Free Text) Assessment: R Basal ganglia acute infarction: -MRI: R small postero lateral basialr infarct with findings of chronic white matter ischemic changes -CT: Chronic white matter changes in R basal ganglia -Dr Najera Neurology consulted: recs appreciated -Plavix 300mg given today, 75mg daily after -ASA 81mg daily -Crestor 20mg -PT/OT/ ST -Lipid Panel: Triglycerides 199, cholesterol 256, LDL 149, HDL 47 -TSH 0.94, Free T4 0.88 - vit D <12.8 -carotid doppler 05/19: Left int carotid tortuosity Impaired Glucose tolerance -Hemoglobin A1c 5.7 PPX: PT/ OT/ ST Plan: dispo: pt pending DAILY placement <Delfin Friedman - Last Filed: 05/22/18 17:47> Objective - Vital Signs/Intake and Output Vital Signs (last 24 hours): Temp Pulse Resp BP Pulse Ox 97.5 F L 86 20 154/70 H 97 05/22/18 15:55 05/22/18 15:55 05/22/18 15:55 05/22/18 15:55 05/22/18 15:55 - Medications Medications: Current Medications Acetaminophen (Tylenol 325mg Tab) 650 mg PO Q6 PRN PRN Reason: Pain, Mild (1-3) Last Admin: 05/22/18 09:31 Dose: 650 mg Albuterol/Ipratropium (Duoneb 3 Mg/0.5 Mg (3 Ml) Ud) 3 ml INH RQ6 PRN PRN Reason: Shortness of Breath Aspirin (Aspirin Chewable) [address] [facility] Last Admin: 05/22/18 09:28 Dose: 81 mg Clopidogrel Bisulfate (Plavix) [address] [facility] Last Admin: 05/22/18 09:28 Dose: 75 mg Ergocalciferol (Drisdol 50,000 Intl Units Cap) [address] [facility] Heparin Sodium (Porcine) (Heparin) 5,[address] [facility] Last Admin: 05/22/18 09:28 Dose: 5,000 units Insulin Aspart (Novolog Mix 70/30 (70/30 Units/Ml)) [address] [facility] PRN Reason: Protocol Last Admin: 05/22/18 17:00 Dose: Not Given Rosuvastatin Calcium (Crestor) [address] [facility] Last Admin: 05/21/18 21:28 Dose: 20 mg - Labs Labs: 05/22/18 07:15 05/22/18 07:15 PT 12.0 SECONDS (9.7-12.2) 05/19/18 10:27 INR 1.1 05/19/18 10:27 APTT 36 SECONDS (21-34) H 05/19/18 10:27 Attending/Attestation - Attestation I have personally seen and examined this patient.: Yes I have fully participated in the care of the patient.: Yes I have reviewed all pertinent clinical information, including history, physical exam and plan: Yes Notes (Text): 05/22/18 17:42 Patient was seen and examined at 2:30 PM 05/22/18 Bed 659 A Exam: General: AAOX3, NAD HEENT: NCA, EOMI, PERRLA, NO cervical/supraclavicular/submandibular lymphadenopathy, NO pharyngeal erythema/exudate, Nasal Turbinates are nonerythematous/nonedematous, Oral Mucosa is moist, She is unable to move the left side of her mouth when asked to smile Cardio: Holosystolic Murmur Resp: CTA B/L, NO R/R/W GI: BSx4, Soft, NT, NO HSM, NO guarding/rebound tenderness Ext: Pulses are strong and equal, Capillary Refill is 2 seconds, NO edema Neuro: CN II through XII are grossly intact, 5/5 strength with flexion and extension against resistance and 2/4 DTR in bilateral upper and lower extremities Assessments: 1). 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 Rhianna Fernandez 2). HTN Currently not requiring any medications 3). Low Vitamin D Vitamin D 50,000 Units every Tuesday for 8 weeks starting 05/21/18 then repeat level 4). Prophylaxis Heparin 5,000 Units SC Q8H Duoneb Q6H PRN SOB Tylenol 650 mg PO Q6H PRN Mild Pain Disposition: PT recommended [facility] and patient originally declined and she was ready for discharge today as team was setting up home PT. Now patient has changed her mind and would like to go to [facility]. Spoke with [employer] Sandra and she is working on getting patient to [facility]. Delfin Friedman D.O.
[2018-05-22 15:56] VITALS: RESP 20
[2018-05-22] MEDS ORDERED: Magnesium Hydroxide Susp 30 ml UD PO ONE (19:05)
--- NOTE | 2018-05-22 22:38 | CARD ---
APPROVED REPORT Date of service: 05/22/2018 EXAM: Two-dimensional and M-mode echocardiogram with Doppler and color Doppler. Other Information Quality : GoodRhythm : INDICATION CVA/TIA Dizziness and Vertigo COPD RISK FACTORS Hypertension Obesity 2D DIMENSIONS IVSd0.9 (0.7-1.1cm)Aortic Root (2D)3.1 (2.0-3.7cm) LVDd4.0 (3.9-5.9cm)PWd0.8 (0.7-1.1cm) LVDs2.2 (2.5-4.0cm)FS (%) 45.3 % LVEF (%)77.2 (>50%) M-Mode DIMENSIONS RVDd1.37 (2.1-3.2cm)Left Atrium (MM)4.38 (2.5-4.0cm) IVSd1.05 (0.7-1.1cm)Aortic Root3.03 (2.2-3.7cm) LVDd3.71 (4.0-5.6cm)Aortic Cusp Exc.1.70 (1.5-2.0cm) PWd1.24 (0.7-1.1cm)FS (%) 62 % LVDs1.40 (2.0-3.8cm)LVEF (%)75 (>50%) Aortic Valve AoV Peak Aldhccry030.4cm/sAoV VTI44.0cmAO Peak GR.19mmHg AO Mean GR.10mmHg Mitral Valve MV E Sxnkccjw28.0cm/sMV A Vttgrqjq54.5cm/sE/A ratio0.8 TDI E/Lateral E'0.0E/Medial E'0.0 Tricuspid Valve TR Peak Vlgrrbtx713tj/sTR Peak Gr.61hlCzKONM29pmDw <Conclusion> Left ventricle: thickness: normal; size: normal; overall ejection fraction: 65%: diastolic filling pressures: normal Mitral valve: annulus: normal: leaflets: normal: excursion: normal; no significant trans-mitral gradient: no significant incompetence: left atrium:upper limit of normal Aortic valve: leaflets: mild calcific thickening: excursion: normal; 18mmHg peak trans-aortic gradient: No significant incompetence: aortic root: normal Right sided Structures: Pulmonary valve: normal; no significant incompetence; Tricuspid valve: normal; no significant incompetence: Intra-cardiac hemodynamics: pulmonary systolic pressures: normal; central venous pressures: normal No pericardial effusion
[2018-05-23] MEDS: (Novolog Mix 70/30) Insulin Aspart/Insulin Aspar 100 units/ml SC SCH ×3 (08:28→17:30)
[2018-05-23] MEDS ORDERED: Magnesium Sulfate 1 gm in D5W 1 GM/100 ML BAG IVPB ONE (10:00)
--- NOTE | 2018-05-23 13:56 | CP.PCM.DIS ---
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: Chronic Hospital Course - Lab Results Lab Results: Most Recent Lab Values WBC 5.6 K/uL (4.8-10.8) 05/22/18 07:15 RBC 3.62 Mil/uL (3.80-5.20) L 05/22/18 07:15 Hgb 11.5 g/dL (11.0-16.0) 05/22/18 07:15 Hct 33.9 % (34.0-47.0) L 05/22/18 07:15 MCV 93.6 fL (81.0-99.0) 05/22/18 07:15 MCH 31.7 pg (27.0-31.0) H 05/22/18 07:15 MCHC 33.8 g/dL (33.0-37.0) 05/22/18 07:15 RDW 13.9 % (11.5-14.5) 05/22/18 07:15 Plt Count 233 K/uL (130-400) 05/22/18 07:15 MPV 8.8 fL (7.2-11.7) 05/22/18 07:15 Neut % (Auto) 56.9 % (50.0-75.0) 05/22/18 07:15 Lymph % (Auto) 29.8 % (20.0-40.0) 05/22/18 07:15 [place] % (Auto) 9.3 % (0.0-10.0) 05/22/18 07:15 Eos % (Auto) 2.9 % (0.0-4.0) 05/22/18 07:15 Baso % (Auto) 1.1 % (0.0-2.0) 05/22/18 07:15 Neut # (Auto) 3.2 K/uL (1.8-7.0) 05/22/18 07:15 Lymph # (Auto) 1.7 K/uL (1.0-4.3) 05/22/18 07:15 [place] # (Auto) 0.5 K/uL (0.0-0.8) 05/22/18 07:15 Eos # (Auto) 0.2 K/uL (0.0-0.7) 05/22/18 07:15 Baso # (Auto) 0.1 K/uL (0.0-0.2) 05/22/18 07:15 PT 12.0 SECONDS (9.7-12.2) 05/19/18 10:27 INR 1.1 05/19/18 10:27 APTT 36 SECONDS (21-34) H 05/19/18 10:27 Sodium 141 mmol/L (132-148) 05/22/18 07:15 Potassium 3.9 mmol/L (3.6-5.2) 05/22/18 07:15 Chloride 107 mmol/L (98-107) 05/22/18 07:15 Carbon Dioxide 26 mmol/L (22-30) 05/22/18 07:15 Anion Gap 12 (10-20) 05/22/18 07:15 BUN 11 mg/dL (7-17) 05/22/18 07:15 Creatinine 0.6 mg/dL (0.7-1.2) L 05/22/18 07:15 Est GFR ( Amer) > 60 05/22/18 07:15 Est GFR (Non-Af Amer) > 60 05/22/18 07:15 POC Glucose (mg/dL) 163 mg/dL (65-110) H 05/23/18 11:34 Random Glucose 100 mg/dL (65-105) 05/22/18 07:15 Hemoglobin A1c 5.7 % (4.2-6.5) 05/19/18 10:27 Calcium 9.1 mg/dl (8.6-10.4) 05/22/18 07:15 Phosphorus 3.7 mg/dL (2.5-4.5) 05/22/18 07:15 Magnesium 2.3 mg/dL (1.6-2.3) 05/22/18 07:15 Total Bilirubin 0.5 mg/dL (0.2-1.3) 05/22/18 07:15 AST 18 U/L (14-36) 05/22/18 07:15 ALT 25 U/L (9-52) 05/22/18 07:15 Alkaline Phosphatase 94 U/L (38-126) 05/22/18 07:15 Troponin I < 0.0120 ng/mL (0.00-0.120) 05/19/18 16:31 Total Protein 6.3 g/dL (6.3-8.3) 05/22/18 07:15 Albumin 3.7 g/dL (3.5-5.0) 05/22/18 07:15 Globulin 2.5 gm/dL (2.2-3.9) 05/22/18 07:15 Albumin/Globulin Ratio 1.5 (1.0-2.1) 05/22/18 07:15 Triglycerides 199 mg/dL (0-149) H 05/19/18 10:27 Cholesterol 256 mg/dL (0-199) H 05/19/18 10:27 LDL Cholesterol Direct 149 mg/dL (0-129) H 05/19/18 10:27 HDL Cholesterol 47 mg/dL (30-70) 05/19/18 10:27 25-OH Vitamin D Total < 12.8 NG/ML (30.0-100.0) L 05/20/18 11:37 Free T4 0.88 ng/dL (0.78-2.19) 05/20/18 11:37 TSH 3rd Generation 0.94 mIU/L (0.46-4.68) 05/20/18 11:37 RPR Nonreactive (NONREACTIVE) 05/20/18 11:37 Blood Type O POSITIVE 05/19/18 10:27 Antibody Screen Negative 05/19/18 10:27 - Hospital Course Hospital Course: cc: facial droop and tongue heaviness HPI: 73yo F with a PMH of COPD, HTN, Psychosis, tremors and a CVA (2008) presents to the ED with a one day history of facial droop and onset on tongue heaviness felt this morning. Pt also was acting a little strange and sounded "drunk" last night according to her son and grand son with whom she lives with. Pt was feeling dizzy and this morning son who noticed her facial droop and recommended she go see her PMD Dr Cuadra immediately. Dr cuadra sent the pt here to the ED with suspicion of stroke. Pt started on IVF upon arrival and given 325mg ASA PO when initial CT was read neg for bleed. Of note Pt has been off her anticonvulsant medication ROS:pos+ dizziness, Headache, tongue heaviness, couch, abd pain, worsening tremors, sick contact: grandson bronchitis neg - f/c vomiting, SOB, change in vision, change in speech PMD: Dr Cuadra Psych: Dr Hansen PSx hysterectomy, bladder sx fm hx: mom cataracts, dad young? SocHx: denies any drug tobacco or etoh use. Lives with son's family HOSPITAL COURSE: Pt was admitted for a R Posterolateral Basal Ganglia infarction. Pt was given a 325mg dose of ASA and 300mg of Plavix upon presentation. Pt was then maintained on a daily dosage of ASA 81mg, Plavix 75mg, Rosuvastatin 20mg HS, 100mls/hr of NS IVF and Heparin 5000u q12. Pt's COPD was managed with duonebs PRN. Pt dizziness and subjective state began to improve. Pt complained of frequent headaches which were managed with Tylenol 650mg and Mg-Sulfate. Pt medically stable for d/c to [facility]. Diagnostics and Imagin/17 CXR: Minor linear atlect / scarring bilat 05/19 EKG: NSR 05/[address]: mild chronic white matter ischemic changes, Basal ganglia infarct changes, no bleed 05/19 Brain MRI: Small acute R post-lat basal ganglia infarct, chronic raheem basal nuclei and white matter ischemic changes, moderate central vol loss, no bleed 05/19 Carotid Doppler: Neg for stenosi 05/19 Echo: EF 65%, mild aortic valve calcification please refer to [facility] for full reports INSTRUCTIONS: Pt is medically stable for discharge to Sub Acute Rehab. Pt is instructed to follow up with neurology Dr Najera, psychiatrist Dr Hansen and PMD Dr Cuadra within one week after discharge from [facility] Pt will be discharged with the following medications: Aspirin 81mg PO daily Plavix 75mg PO daily Zocor 40mg PO daily Pt is to seek immediate medical attention if sudden signs of stroke, intense headaches, loss of vision, loss of conscience, change in speech or body paralysis. take care and be well, Alfonso Ball DO Discharge Exam - Head Exam Head Exam: ATRAUMATIC, NORMAL INSPECTION - Additional Findings Additional findings: - Constitutional Appears: Well, Non-toxic, Toxic - Head Exam Head Exam: ATRAUMATIC, NORMAL INSPECTION - Eye Exam Eye Exam: EOMI, Normal appearance. absent: Nystagmus - ENT Exam ENT Exam: Mucous Membranes Moist - Neck Exam Neck Exam: Tenderness (L sternocleidomastoid tenderness, possible spasm). absent: Thyromegaly - Respiratory Exam Respiratory Exam: Clear to Ausculation Bilateral, NORMAL BREATHING PATTERN. absent: Respiratory Distress, Stridor - Cardiovascular Exam Cardiovascular Exam: RRR, +S1, +S2. absent: Murmur - GI/Abdominal Exam GI & Abdominal Exam: Soft, Normal Bowel Sounds. absent: Tenderness - Extremities Exam Extremities Exam: Full ROM, Normal Capillary Refill, Normal Inspection. absent : Pedal Edema - Back Exam Back Exam: NORMAL INSPECTION - Neurological Exam Neurological Exam: Alert, Awake, CN II-XII Intact, Oriented x3 Additional comments: neg head impulse for vertigo or nystagmus neg meño hallpike Positive facial droop left side Positive l sided tongue deviation Discharge Plan - Discharge Medications Prescriptions: Aspirin [Aspirin Chewable] 81 mg PO DAILY #30 chew Clopidogrel [Plavix] 75 mg PO DAILY #30 tab - Follow Up Plan Condition: FAIR Disposition: REHAB FACILITY/REHAB UNIT Instructions: Heart Healthy Diet, DASH Diet, High Blood Pressure (DC), Stroke ( DC), Dizziness, Nonvertigo, (DC) Additional Instructions: Pt is medically stable for discharge to Sub Acute Rehab. Pt is instructed to follow up with neurology Dr Najera, psychiatrist Dr Hansen and PMD Dr Cuadra within one week after discharge from [facility] Pt will be discharged with the following medications: Aspirin 81mg PO daily Plavix 75mg PO daily Zocor 40mg PO daily Pt is to seek immediate medical attention if sudden signs of stroke, intense headaches, loss of vision, loss of conscience, change in speech or body paralysis. Referrals: Marcel Cuadra [Staff Provider] - Wilton Hansen MD [Staff Provider] - Chris Jean MD [Staff Provider] - Mg Najera MD [Staff Provider] - <Joseph Cheney - Last Filed: 05/23/18 16:19> Provider - Provider Date of Admission: 05/19/18 11:15 Attending physician: Joseph Cheney DO Hospital Course - Lab Results Lab Results: Most Recent Lab Values WBC 5.6 K/uL (4.8-10.8) 05/22/18 07:15 RBC 3.62 Mil/uL (3.80-5.20) L 05/22/18 07:15 Hgb 11.5 g/dL (11.0-16.0) 05/22/18 07:15 Hct 33.9 % (34.0-47.0) L 05/22/18 07:15 MCV 93.6 fL (81.0-99.0) 05/22/18 07:15 MCH 31.7 pg (27.0-31.0) H 05/22/18 07:15 MCHC 33.8 g/dL (33.0-37.0) 05/22/18 07:15 RDW 13.9 % (11.5-14.5) 05/22/18 07:15 Plt Count 233 K/uL (130-400) 05/22/18 07:15 MPV 8.8 fL (7.2-11.7) 05/22/18 07:15 Neut % (Auto) 56.9 % (50.0-75.0) 05/22/18 07:15 Lymph % (Auto) 29.8 % (20.0-40.0) 05/22/18 07:15 [place] % (Auto) 9.3 % (0.0-10.0) 05/22/18 07:15 Eos % (Auto) 2.9 % (0.0-4.0) 05/22/18 07:15 Baso % (Auto) 1.1 % (0.0-2.0) 05/22/18 07:15 Neut # (Auto) 3.2 K/uL (1.8-7.0) 05/22/18 07:15 Lymph # (Auto) 1.7 K/uL (1.0-4.3) 05/22/18 07:15 [place] # (Auto) 0.5 K/uL (0.0-0.8) 05/22/18 07:15 Eos # (Auto) 0.2 K/uL (0.0-0.7) 05/22/18 07:15 Baso # (Auto) 0.1 K/uL (0.0-0.2) 05/22/18 07:15 PT 12.0 SECONDS (9.7-12.2) 05/19/18 10:27 INR 1.1 05/19/18 10:27 APTT 36 SECONDS (21-34) H 05/19/18 10:27 Sodium 141 mmol/L (132-148) 05/22/18 07:15 Potassium 3.9 mmol/L (3.6-5.2) 05/22/18 07:15 Chloride 107 mmol/L (98-107) 05/22/18 07:15 Carbon Dioxide 26 mmol/L (22-30) 05/22/18 07:15 Anion Gap 12 (10-20) 05/22/18 07:15 BUN 11 mg/dL (7-17) 05/22/18 07:15 Creatinine 0.6 mg/dL (0.7-1.2) L 05/22/18 07:15 Est GFR ( Amer) > 60 05/22/18 07:15 Est GFR (Non-Af Amer) > 60 05/22/18 07:15 POC Glucose (mg/dL) 117 mg/dL (65-110) H 05/23/18 15:59 Random Glucose 100 mg/dL (65-105) 05/22/18 07:15 Hemoglobin A1c 5.7 % (4.2-6.5) 05/19/18 10:27 Calcium 9.1 mg/dl (8.6-10.4) 05/22/18 07:15 Phosphorus 3.7 mg/dL (2.5-4.5) 05/22/18 07:15 Magnesium 2.3 mg/dL (1.6-2.3) 05/22/18 07:15 Total Bilirubin 0.5 mg/dL (0.2-1.3) 05/22/18 07:15 AST 18 U/L (14-36) 05/22/18 07:15 ALT 25 U/L (9-52) 05/22/18 07:15 Alkaline Phosphatase 94 U/L (38-126) 05/22/18 07:15 Troponin I < 0.0120 ng/mL (0.00-0.120) 05/19/18 16:31 Total Protein 6.3 g/dL (6.3-8.3) 05/22/18 07:15 Albumin 3.7 g/dL (3.5-5.0) 05/22/18 07:15 Globulin 2.5 gm/dL (2.2-3.9) 05/22/18 07:15 Albumin/Globulin Ratio 1.5 (1.0-2.1) 05/22/18 07:15 Triglycerides 199 mg/dL (0-149) H 05/19/18 10:27 Cholesterol 256 mg/dL (0-199) H 05/19/18 10:27 LDL Cholesterol Direct 149 mg/dL (0-129) H 05/19/18 10:27 HDL Cholesterol 47 mg/dL (30-70) 05/19/18 10:27 25-OH Vitamin D Total < 12.8 NG/ML (30.0-100.0) L 05/20/18 11:37 Free T4 0.88 ng/dL (0.78-2.19) 05/20/18 11:37 TSH 3rd Generation 0.94 mIU/L (0.46-4.68) 05/20/18 11:37 RPR Nonreactive (NONREACTIVE) 05/20/18 11:37 Blood Type O POSITIVE 05/19/18 10:27 Antibody Screen Negative 05/19/18 10:27 Attending/Attestation - Attestation I have personally seen and examined this patient.: Yes I have fully participated in the care of the patient.: Yes I have reviewed all pertinent clinical information, including history, physical exam and plan: Yes Notes (Text): 05/23/18 16:16 Medical attending: Patient was seen and examined by me. Agree with the above note by the resident The patient was not in any acute distress when we saw her intially. She did not have any new neurological deficits. There was still facial drooping on the left side of the face. Also decrease sensation over the left cheek and nose which is not changed from before. Her speech sounds better than when I first met her. When I last saw her on Tuesday she did not want to go to rehab but since then has changed her mind and does want to go. She will need to be on ASA as well as Plavix and BP controll thank you Joseph Cheney
[2018-05-23 15:46] VITALS: BP 151/85; PULSE 96; TEMP 98.6; O2SAT 95
== END 2018-05-23 17:30 | DRG 66 ==
LOC: C.ER 10:07 → C.9E 11:15 → C.6T 11:59
PROVIDERS: ADMIT Hospitalist; ATTEND Hospitalist
DX: I63.9 Cerebral infarction, unspecified (principal); I10 Essential (primary) hypertension; R29.810 Facial weakness; J44.9 Chronic obstructive pulmonary disease, unspecified; F29 Unspecified psychosis not due to a substance or known physiological condition; R73.02 Impaired glucose tolerance (oral); I69.328 Other speech and language deficits following cerebral infarction; R47.81 Slurred speech